=== PATIENT | male | born 1940 | race Two or more races ===

== ENCOUNTER 2025-06-10 18:24 | Emergency (ER) | payer OTHER ==
[~2025-06-10] VITALS: Ht 162.6 cm; Wt 57.6 kg
[2025-06-10] MEDS ORDERED: XARELTO10 MG PO (18:33)
[2025-06-10] MEDS ORDERED: CEFTRIAXONE SODIUM 1,000 MG VIAL ONE (19:44)
[2025-06-10] MEDS ORDERED: CEFTRIAXONE SODIUM 1,000 MG VIAL IM ONE (19:45)
[2025-06-10] MEDS ORDERED: CEPHALEXIN500 MG PO (19:52)
== END 2025-06-10 19:57 | disposition home or self-care (01) ==
LOC: ER 18:24
DX: S01.321A Laceration with foreign body of right ear, initial encounter (principal); W22.8XXA Striking against or struck by other objects, initial encounter; Y93.89 Activity, other specified; Y92.012 Bathroom of single-family (private) house as the place of occurrence of the external cause; Z88.6 Allergy status to analgesic agent; I10 Essential (primary) hypertension; M19.90 Unspecified osteoarthritis, unspecified site

== ENCOUNTER 2025-06-20 19:50 | Emergency (ER) | payer OTHER ==
[~2025-06-20] VITALS: Ht 162.6 cm; Wt 61.2 kg
[~2025-06-20 19:50] MED LIST: CEPHALEXIN500 MG PO; XARELTO10 MG PO
[2025-06-20 20:55] VITALS: BP 129/73; O2SAT 97
== END 2025-06-20 22:12 | disposition home or self-care (01) ==
LOC: ER 19:50
DX: Z48.02 Encounter for removal of sutures (principal)